=== PATIENT | female | born 1970 | race Caucasian/White ===

== ENCOUNTER 2018-03-23 11:17 | Emergency (ER) | payer BC ==
[~2018-03-23] VITALS: Ht 170.2 cm; Wt 76.2 kg
[~2018-03-23 11:17] MED LIST: CEPH500 PO; OXYACE5T PO
[2018-03-23] MEDS ORDERED: PRED10 PO (11:31)
[2018-03-23] MEDS ORDERED: Pepcid20 MG PO (11:31)
== END 2018-03-23 11:40 | disposition home or self-care (01) ==
LOC: ER 11:17
DX: T63.441A Toxic effect of venom of bees, accidental (unintentional), initial encounter (principal); Z87.891 Personal history of nicotine dependence; F17.290 Nicotine dependence, other tobacco product, uncomplicated
CPT/HCPCS: 96372; 99282; J2930

== ENCOUNTER 2022-02-24 08:18 | Emergency (ER) | payer BC ==
[~2022-02-24] VITALS: Ht 170.2 cm; Wt 74.8 kg
[~2022-02-24 08:18] MED LIST changes: +PRED10 PO; +Pepcid20 MG PO
[2022-02-24] MEDS ORDERED: IBUP800 PO (11:12)
[2022-02-24] MEDS ORDERED: CRUTCH4 XX (11:12)
== END 2022-02-24 11:21 | disposition home or self-care (01) ==
LOC: ER 08:18
DX: M25.562 Pain in left knee (principal); W19.XXXA Unspecified fall, initial encounter; Z79.52 Long term (current) use of systemic steroids; Z79.899 Other long term (current) drug therapy; Z87.891 Personal history of nicotine dependence
CPT/HCPCS: 73562-LT